=== PATIENT | male | born 1960 | race African-American/Black ===

== ENCOUNTER 2018-07-13 17:36 | Emergency (ER) | payer SELFPAY ==
[~2018-07-13] VITALS: Ht 185.4 cm; Wt 124.7 kg
--- NOTE | 2018-07-13 18:23 | PHYS DOC ---
Past Medical History Past Medical History: Diabetes-Type II, Hypertension Additional Past Medical Histor: Chronic back pain Additional Past Surgical Histo: Lumbar spinal fusion Smoking: Cigarettes Alcohol Use: Heavy Drug Use: Cocaine Adult General Chief Complaint Chief Complaint: HYPERGLYCEMIA HPI HPI Patient is a 57 year old male with past medical history of hypertension and diabetes presenting from [facility] after initial medical intake screening this afternoon discovered patient was hypertensive at 187/107 and had a blood glucose of 489. They recommended he come to the emergency department for evaluation. Patient notes he has been off his blood pressure and diabetes medications for 2 months after losing his job. Patient notes that he has felt sluggish and has had a headache for 1 week. Patient notes his headache has been constant for the last 2 days, and has had a throbbing quality. Patient notes he has had similar headaches in the past, and notes that this headache is not any different from past headaches. Patient also notes that he has had blurry vision for 2 weeks. Patient notes he has had this blurry vision in the past when his blood sugars were elevated. Patient notes that he has been drinking daily for the last 2 months. Patient notes that his last drink was yesterday. Patient denies tremulousness, or any other symptoms of alcohol withdrawal. Patient notes he has never had any alcohol withdrawal seizures or delirium tremens. Patient denies any focal weakness, chest pain, fevers or chills, shortness of breath, cough, URI symptoms, abdominal pain, or lower extremity pain. Patient notes he as been accepted for inpatient alcohol cessation treatment at [facility]. Patient notes he was previously on metformin and long-acting insulin for his diabetes, and 3 unknown hypertension medications. \ Review of Systems Review of Systems Constitutional: Denies fever or chills [] Eyes: Denies changes, redness, or eye pain [] HENT: Denies nasal congestion or sore throat [] Respiratory: Denies cough or shortness of breath [] Cardiovascular: No additional information not addressed in HPI [] GI: Denies abdominal pain, nausea, vomiting, bloody stools or diarrhea [] : Denies dysuria or hematuria [] Musculoskeletal: Notes back pain, Denies myalgias [] Integument: Denies rash or skin lesions [] Neurologic: Denies headache, focal weakness or sensory changes [] Endocrine: Notes polyuria and polydipsia [] Complete other systems were reviewed and found to be within normal limits, except as documented in this note. Family History Family History Noncontributory Current Medications Current Medications Current Medications Medications (Trade) Dose Ordered Sig/Shravan Start Time Stop Time Status Last Admin Dose Admin Acetaminophen/ Butalbital/ Caffeine (Fioricet) 1 tab 1X ONCE 07/13/18 19:30 07/13/18 19:31 DC 07/13/18 19:48 1 TAB Aspirin (Laura Aspirin) 325 mg 1X ONCE 07/13/18 18:30 07/13/18 18:31 DC 07/13/18 19:47 325 MG Insulin Human Regular (HumuLIN R VIAL) 14 unit 1X ONCE 07/13/18 19:30 07/13/18 19:31 DC 07/13/18 19:56 14 UNIT Ondansetron HCl (Zofran) 4 mg 1X ONCE 07/13/18 19:30 07/13/18 19:31 DC 07/13/18 19:48 4 MG Sodium Chloride 1,000 ml @ 1,000 mls/hr 1X ONCE 07/13/18 19:45 07/13/18 20:44 DC 07/13/18 19:48 1,000 MLS/HR Allergies Allergies Allergies Coded Allergies Type Severity Reaction Last Updated Verified No Known Drug Allergies 07/13/18 No Physical Exam Physical Exam Constitutional: Well developed, well nourished, no acute distress, non-toxic appearance. [] HENT: Normocephalic, atraumatic, bilateral external ears normal, oropharynx moist, no oral exudates, nose normal. [] Eyes: PERRL, EOMI, conjunctiva normal, no discharge. Visual field testing unremarkable.[] Neck: Normal range of motion, no tenderness, supple, no stridor. [] Cardiovascular:Heart rate regular rhythm, no murmur [] Lungs & Thorax: Bilateral breath sounds clear to auscultation [] Abdomen: Bowel sounds normal, soft, no tenderness, no masses, no pulsatile masses. [] Skin: Warm, dry, no erythema, no rash. [] Back: Lumbar tenderness, no CVA tenderness. [] Extremities: No tenderness, no cyanosis, no clubbing, ROM intact, no edema. [] Neurologic: Alert and oriented X 3, normal motor function, normal sensory function, no focal deficits noted. [] Psychologic: Affect normal, judgement normal, mood normal. [] Current Patient Data Vital Signs Vital Signs Date Time Temp Pulse Resp B/P (MAP) Pulse Ox O2 Delivery O2 Flow Rate FiO2 07/13/18 18:23 98.1 71 18 166/83 (110) 97 Room Air 98.1 Lab Values Laboratory Tests Test 07/13/18 18:35 07/13/18 18:45 07/13/18 20:31 Urine Collection Type Unknown Urine Color Yellow Urine Clarity Clear Urine pH 5.5 Urine Specific [place] >=1.030 Urine Protein Negative mg/dL (NEG-TRACE) Urine Glucose (UA) >=1000 mg/dL (NEG) Urine Ketones (Stick) Negative mg/dL (NEG) Urine Blood Negative (NEG) Urine Nitrite Negative (NEG) Urine Bilirubin Negative (NEG) Urine Urobilinogen Dipstick 1.0 mg/dL (0.2 mg/dL) Urine Leukocyte Esterase Negative (NEG) Urine RBC 0 /HPF (0-2) Urine WBC Rare /HPF (0-4) Urine Squamous Epithelial Cells Occ /LPF Urine Bacteria 0 /HPF (0-FEW) Urine Opiates Screen Neg (NEG) Urine Methadone Screen Neg (NEG) Urine Barbiturates Neg (NEG) Urine Phencyclidine Screen Neg (NEG) Urine Amphetamine/Methamphetamine Neg (NEG) Urine Benzodiazepines Screen Neg (NEG) Urine Cocaine Screen Pos (NEG) Urine Cannabinoids Screen Neg (NEG) Urine Ethyl Alcohol Neg (NEG) White Blood Count 7.8 x10^3/uL (4.0-11.0) Red Blood Count 5.08 x10^6/uL (4.30-5.70) Hemoglobin 14.9 g/dL (13.0-17.5) Hematocrit 44.7 % (39.0-53.0) Mean Corpuscular Volume 88 fL (79-100) Mean Corpuscular Hemoglobin 29 pg (25-35) Mean Corpuscular Hemoglobin Concent 33 g/dL (31-37) Red Cell Distribution Width 12.1 % (11.5-14.5) Platelet Count 199 x10^3/uL (140-400) Neutrophils (%) (Auto) 55 % (31-73) Lymphocytes (%) (Auto) 36 % (24-48) Monocytes (%) (Auto) 8 % (0-9) Eosinophils (%) (Auto) 1 % (0-3) Basophils (%) (Auto) 1 % (0-3) Neutrophils # (Auto) 4.3 x10^3uL (1.8-7.7) Lymphocytes # (Auto) 2.8 x10^3/uL (1.0-4.8) Monocytes # (Auto) 0.6 x10^3/uL (0.0-1.1) Eosinophils # (Auto) 0.1 x10^3/uL (0.0-0.7) Basophils # (Auto) 0.1 x10^3/uL (0.0-0.2) Sodium Level 133 mmol/L (136-145) L Potassium Level 4.2 mmol/L (3.5-5.1) Chloride Level 96 mmol/L (98-107) L Carbon Dioxide Level 28 mmol/L (21-32) Anion Gap 9 (6-14) Blood Urea Nitrogen 14 mg/dL (8-26) Creatinine 1.4 mg/dL (0.7-1.3) H Estimated GFR (Cockcroft-Gault) 63.4 BUN/Creatinine Ratio 10 (6-20) Glucose Level 576 mg/dL (70-99) *H Serum Osmolality 310 mOsm/Kg (279-304) H Calcium Level 9.6 mg/dL (8.5-10.1) Magnesium Level 2.0 mg/dL (1.8-2.4) Total Bilirubin 0.4 mg/dL (0.2-1.0) Aspartate Amino Transferase (AST) 17 U/L (15-37) Alanine Aminotransferase (ALT) 29 U/L (16-63) Alkaline Phosphatase 139 U/L (46-116) H Troponin I Quantitative < 0.017 ng/mL (0.000-0.055) YA-Lfx-Y-Type Natriuretic Peptide 8 pg/mL (0-124) Total Protein 7.4 g/dL (6.4-8.2) Albumin 3.5 g/dL (3.4-5.0) Albumin/Globulin Ratio 0.9 (1.0-1.7) L Lipase 127 U/L (73-393) Ethyl Alcohol Level < 10 mg/dL (0-10) Acetone Level Neg (NEG) Glucose (Fingerstick) 439 mg/dL (70-99) H Laboratory Tests 07/13/18 18:45 Laboratory Tests 07/13/18 18:45 EKG EKG Sinus rhythm, rate 66 , QRS 96, QTc 478, QRS 96, no acute ischemic changes noted. T wave inversions noted in leads 3 and aVF.[] Interpretation Time: 18:37 Radiology/Procedures Radiology/Procedures PROCEDURE: CT HEAD WO CONTRAST PQRS Compliance statement: One or more of the following individualized dose reduction techniques were utilized for this examination: 1. Automated exposure control. 2. Adjustment of the mA and/or kV according to patient size. 3. Use of iterative reconstruction technique. Indication:HEADACHE, HTN, NO PRIORS TECHNIQUE: CT head without IV contrast COMPARISON:None FINDINGS: No pathologic extra-axial or intra-axial fluid collection. The ventricles and basal cisterns are within normal limits. No acute intracranial bleed. No focal loss of bowen-white differentiation. Orbits within normal limits. No suspicious calvarial lesion. Visualized paranasal sinuses and mastoid air cells are clear. IMPRESSION: No acute intracranial process. If concern for acute ischemic stroke is high, please consider MRI brain. Electronically signed by: Gilbert Cardona DO (07/13/2018 7:54 PM) [facility][] Course & Med Decision Making Course & Med Decision Making 57-year-old male presenting from [facility] treatment facility after initial medical evaluation showed hyperglycemia and hypertension. Patient notes that he has been feeling sluggish and has had a headache and blurry vision for 1 -2 weeks. Patient notes that he has not been taking his diabetes or hypertension medications for 2 months due to losing his insurance. Laboratory and imaging collected and reviewed. No signs of DKA, HHS, and organ damage, acute intracranial process. Patient given 1 L fluid bolus, subcutaneous insulin , Fioricet. Patient notes headache is improved. Patient stable for discharge back to treatment facility. (See chart for details) [] Dragon Disclaimer Dragon Disclaimer This electronic medical record was generated, in whole or in part, using a voice recognition dictation system. Departure Departure Impression: Primary Impression: Hyperglycemia Additional Impressions: Headache Hypertension Disposition: 01 HOME, SELF-CARE Condition: STABLE Patient Instructions: General Headache Without Cause, Hyperglycemia, Hypertension Additional Instructions: Please fill previously written prescriptions for high blood pressure and diabetes. Take all medications as per directed in previously written scripts. Problem Qualifiers Additional Impressions: Headache Headache type: unspecified Headache chronicity pattern: unspecified pattern Intractability: not intractable Qualified Codes: R51 - Headache Hypertension Hypertension type: unspecified Qualified Codes: I10 - Essential (primary) hypertension BOSSMAN MACE DO Jul 13, 2018 18:23
[2018-07-13] MEDS ORDERED: ASPIRIN 325 MG TABLET PO ONE (18:30)
[2018-07-13 18:51] LABS: BILIRUBIN,URINE NEGATIVE (NEG); CLARITY,URINE CLEAR; COLOR,URINE YELLOW; NITRITE,URINE NEGATIVE (NEG); PH,URINE 5.5; PROTEIN,URINE NEGATIVE (NEG-TRACE)
[2018-07-13 18:56] LABS: BACTERIA,URINE 0 /HPF (0-FEW); RBC,URINE 0 /HPF (0-2); SQUAMOUS EPITHELIAL CELL,UR OCC /LPF; WBC,URINE RARE /HPF (0-4)
[2018-07-13 19:05] LABS: BASO # 0.1 x10^3/uL (0.0-0.2); BASO % 1 % (0-3); EOS # 0.1 x10^3/uL (0.0-0.7); EOS % 1 % (0-3); HEMATOCRIT 44.7 % (39.0-53.0); HEMOGLOBIN 14.9 g/dL (13.0-17.5); LYMPH # 2.8 x10^3/uL (1.0-4.8); LYMPH % 36 % (24-48); MEAN CORPUSCULAR HEMOGLOBIN 29 pg (25-35); MEAN CORPUSCULAR HGB CONC 33 g/dL (31-37); MEAN CORPUSCULAR VOLUME 88 fL (79-100); MONO # 0.6 x10^3/uL (0.0-1.1); MONO % 8 % (0-9); NEUT # 4.3 x10^3uL (1.8-7.7); NEUT % 55 % (31-73); PLATELET COUNT 199 x10^3/uL (140-400); RED BLOOD COUNT 5.08 x10^6/uL (4.30-5.70); RED CELL DISTRIBUTION WIDTH 12.1 % (11.5-14.5); WHITE BLOOD COUNT 7.8 x10^3/uL (4.0-11.0)
[2018-07-13 19:18] LABS: ALBUMIN 3.5 g/dL (3.4-5.0); ALBUMIN/GLOBULIN RATIO 0.9 (1.0-1.7); CALCIUM 9.6 mg/dL (8.5-10.1); CREATININE 1.4 mg/dL (0.7-1.3); GFR 63.4; POTASSIUM 4.2 mmol/L (3.5-5.1); TOTAL BILIRUBIN 0.4 mg/dL (0.2-1.0); TOTAL PROTEIN 7.4 g/dL (6.4-8.2)
[2018-07-13] MEDS ORDERED: INSULIN REGULAR 100 UNIT/ML 3ML VIAL. SQ ONE (19:30)
[2018-07-13] MEDS ORDERED: BUTALB/APAP/CAFEIN 50/325/40MG TABLET. PO ONE (19:30)
[2018-07-13] MEDS ORDERED: ONDANSETRON PF 4 MG/2 ML VIAL. IV ONE (19:30)
[2018-07-13 19:42] LABS: BARBITURATES NEG (NEG); BENZODIAZEPINES NEG (NEG); CANNABINOIDS NEG (NEG); COCAINE POS (NEG); METHADONE NEG (NEG); OPIATES NEG (NEG); PHENCYCLIDINE NEG (NEG)
[2018-07-13 19:43] LABS: AMPHETAMINE/METHAMPHETAMINE NEG (NEG)
[2018-07-13] MEDS ORDERED: IV NORMAL SALINE 1000ML BAG 1,000 ML IV ONE (19:45)
--- NOTE | 2018-07-13 19:57 | RAD ---
PQRS Compliance statement: One or more of the following individualized dose reduction techniques were utilized for this examination: 1. Automated exposure control. 2. Adjustment of the mA and/or kV according to patient size. 3. Use of iterative reconstruction technique. Indication:HEADACHE, HTN, NO PRIORS TECHNIQUE: CT head without IV contrast COMPARISON:None FINDINGS: No pathologic extra-axial or intra-axial fluid collection. The ventricles and basal cisterns are within normal limits. No acute intracranial bleed. No focal loss of bowen-white differentiation. Orbits within normal limits. No suspicious calvarial lesion. Visualized paranasal sinuses and mastoid air cells are clear. IMPRESSION: No acute intracranial process. If concern for acute ischemic stroke is high, please consider MRI brain. Electronically signed by: Gilbert Cardona DO (07/13/2018 7:54 PM) [facility]
[2018-07-13 20:24] VITALS: BP 173/73
--- NOTE | 2018-07-16 07:02 | EKG ---
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
== END 2018-07-13 20:41 | disposition home or self-care (01) ==
LOC: ER 17:36
DX: E11.65 Type 2 diabetes mellitus with hyperglycemia (principal); I10 Essential (primary) hypertension; R51 Headache; F17.210 Nicotine dependence, cigarettes, uncomplicated; G89.29 Other chronic pain; F10.20 Alcohol dependence, uncomplicated; Y90.9 Presence of alcohol in blood, level not specified
CPT/HCPCS: 36415; 70450; 80053; 80307; 81001; 82010; 82962; 83690; 83735; 83880; 83930; 84484; 85025; 93005; 96361; 96372; 96374; 99285; G0480; J1815; J2405; J7030; G0479